=== PATIENT | male | born 1960 | race Caucasian/White ===

== ENCOUNTER 2023-12-10 03:08 | Emergency (ER) | payer OTHER ==
[~2023-12-10] VITALS: Ht 170.2 cm; Wt 70.0 kg
[~2023-12-10 03:08] MED LIST: ATEN-73 PO; HYDR25TA2 PO; LISI20TA24 PO
[2023-12-10 04:32] LABS: BASOPHILS % (AUTO) 0.6 % (0.0-2.0); EOSINOPHILS % (AUTO) 2.3 % (1.0-6.0); HEMATOCRIT 38.9 % (41-53); HEMOGLOBIN 12.9 g/dL (13.5-17.5); LYMPHOCYTES # (AUTO) 1.1 K/uL (1.0-4.8); MEAN CORPUSCULAR HEMOGLOBIN 28.9 pg (26.0-34.0); MEAN CORPUSCULAR HGB CONC 33.3 G/dL (31.0-37.0); MEAN CORPUSCULAR VOLUME 87 fL (80-100); MONOCYTES # (AUTO) 0.9 K/uL (0.1-1.0); MONOCYTES % (AUTO) 7.3 % (2.0-9.0); NEUTROPHILS # (AUTO) 9.9 K/uL (1.8-7.7); NEUTROPHILS % (AUTO) 80.8 % (40.0-70.0); PLATELET COUNT (AUTO) 288 K/uL (150-450); RED BLOOD CELL COUNT(AUTO) 4.48 MIL/uL (4.50-5.90); RED CELL DISTRIBUTION WIDTH 14.4 % (11.5-14.5); WHITE BLOOD COUNT (AUTO) 12.3 K/uL (4.5-11.0)
[2023-12-10 04:39] LABS: ANION GAP 10 mmol/L (8-16); CARBON DIOXIDE 26 mmol/L (22-29); CHLORIDE 104 mmol/L (98-107); CREATININE 0.94 mg/dL (0.60-1.30); GLOMERULAR FILTR. RATE CALC > 60 mL/min (>60); GLUCOSE,RANDOM 118 mg/dL (70-110); POTASSIUM 4.1 mmol/L (3.5-5.1); SODIUM SERUM 140 mmol/L (136-145); UREA NITROGEN, BLOOD 26 mg/dL (7-18)
[2023-12-10 04:43] VITALS: BP 150/97; PULSE 85; RESP 16; TEMP 97.9
[2023-12-10 04:45] LABS: LACTIC ACID 0.7 mmol/L (0.4-2.0)
[2023-12-10] MEDS ORDERED: CLIN-142 PO (04:47)
[2023-12-10 04:52] LABS: ALANINE AMINOTRANSFERASE 56 U/L (12-78); ALBUMIN 3.4 g/dL (3.4-5.0); ALKALINE PHOSPHATASE 87 U/L (46-116); ASPARTATE AMINOTRANSFERASE 47 U/L (15-37); BILIRUBIN,TOTAL 0.2 mg/dL (0.1-1.0); TOTAL PROTEIN, SERUM 6.6 g/dL (6.4-8.2)
[2023-12-10] MEDS: CLINDAMYCIN HCL 150 MG CAPSULE PO ONE (04:54)
[2023-12-10] MEDS: TraMADol HCL 50 MG TABLET PO ONE (04:54)
[2023-12-11] MEDS ORDERED: CLIN300C58 PO (13:59)
[2023-12-11] MEDS ORDERED: DOXY-354 PO (13:59)
[2023-12-11] MEDS ORDERED: TRAM-559 PO (13:59)
== END 2023-12-10 05:49 | disposition home or self-care (01) ==
LOC: EMS 03:09
DX: L03.116 Cellulitis of left lower limb (principal); I10 Essential (primary) hypertension; Z98.890 Other specified postprocedural states; Z88.8 Allergy status to other drugs, medicaments and biological substances
CPT/HCPCS: 80053; 83605; 85025; 93005; 99284

== ENCOUNTER 2023-12-11 09:44 | Emergency (ER) | payer OTHER ==
[~2023-12-11] VITALS: Ht 172.7 cm; Wt 80.0 kg
[~2023-12-11 09:44] MED LIST changes: +CLIN-142 PO
[2023-12-11 10:17] VITALS: TEMP 97.9
[2023-12-11] MEDS: DOXYCYCLINE HYCLATE 100 MG TABLET PO ONE (12:12)
[2023-12-11] MEDS: TraMADol HCL 50 MG TABLET PO ONE (12:12)
[2023-12-11] MEDS: CLINDAMYCIN HCL 150 MG CAPSULE PO ONE (12:12)
[2023-12-11] MEDS ORDERED: DOXY-354 PO (13:59)
[2023-12-11] MEDS ORDERED: TRAM-559 PO (13:59)
[2023-12-11] MEDS ORDERED: CLIN300C58 PO (13:59)
[2023-12-11 14:32] VITALS: BP 141/84; PULSE 84; RESP 16
== END 2023-12-11 14:55 | disposition home or self-care (01) ==
LOC: EMS 09:44
DX: L03.116 Cellulitis of left lower limb (principal); B86 Scabies; I10 Essential (primary) hypertension; Z98.890 Other specified postprocedural states; Z88.8 Allergy status to other drugs, medicaments and biological substances
CPT/HCPCS: 99284; Z7502; Z7610

== ENCOUNTER 2023-12-15 23:16 | Emergency (ER) | payer OTHER ==
[~2023-12-15] VITALS: Ht 170.2 cm; Wt 61.4 kg
[~2023-12-15 23:16] MED LIST changes: -ATEN-73 PO; -CLIN-142 PO; +CLIN300C58 PO; +DOXY-354 PO; -HYDR25TA2 PO; +TRAM-559 PO
[2023-12-16 01:16] VITALS: BP 148/99; PULSE 89; RESP 16; TEMP 98.3
[2023-12-16] MEDS: KETOROLAC TROMETHAMINE 60 MG/2 ML VIAL IM ONE (01:38)
[2023-12-16] MEDS: OxyCODONE HCL/ACETAMINOPHEN 5-325 MG TABLET PO ONE (01:38)
== END 2023-12-16 03:09 | disposition home or self-care (01) ==
LOC: EMS 23:17
DX: S80.12XA Contusion of left lower leg, initial encounter (principal); S80.11XA Contusion of right lower leg, initial encounter; I10 Essential (primary) hypertension; Z98.890 Other specified postprocedural states; Z88.8 Allergy status to other drugs, medicaments and biological substances; W18.39XA Other fall on same level, initial encounter; Y93.89 Activity, other specified; Y92.89 Other specified places as the place of occurrence of the external cause; Y99.8 Other external cause status
CPT/HCPCS: 99283; 96372; J1885

== ENCOUNTER 2023-12-19 14:15 | Emergency (ER) | payer OTHER ==
[~2023-12-19] VITALS: Ht 175.3 cm; Wt 80.0 kg
[2023-12-19 14:24] VITALS: TEMP 98.5
[2023-12-19] MEDS: DOXYCYCLINE HYCLATE 100 MG TABLET PO ONE (15:20)
[2023-12-19] MEDS: ACETAMINOPHEN 500 MG TABLET PO ONE (15:20)
[2023-12-19] MEDS: PERMETHRIN 5% 60 GM CREAM TP ONE (15:26)
[2023-12-19] MEDS ORDERED: DOXY-354 PO (15:54)
[2023-12-19] MEDS ORDERED: ACET-3385 PO (15:54)
[2023-12-19 16:09] VITALS: BP 145/84; PULSE 79; RESP 16
== END 2023-12-19 16:10 | disposition home or self-care (01) ==
LOC: EMS 14:23
DX: L03.116 Cellulitis of left lower limb (principal); B86 Scabies; I10 Essential (primary) hypertension; I63.9 Cerebral infarction, unspecified; Z88.1 Allergy status to other antibiotic agents
CPT/HCPCS: 99284; Z7502; Z7610

== ENCOUNTER 2023-12-21 20:00 | Emergency (ER) | payer OTHER ==
[~2023-12-21] VITALS: Ht 167.6 cm; Wt 61.4 kg
[~2023-12-21 20:00] MED LIST changes: +ACET-3385 PO
[2023-12-21 20:05] VITALS: TEMP 99.1
[2023-12-21] MEDS ORDERED: LISI-893 PO (23:09)
[2023-12-21] MEDS: LISINOPRIL 10 MG TABLET PO ONE (23:17)
[2023-12-21] MEDS: TraMADol HCL 50 MG TABLET PO ONE (23:17)
[2023-12-21] MEDS: CLINDAMYCIN PHOS 150 MG/ML 4 ML VIAL IM ONE (23:19)
[2023-12-21 23:49] VITALS: BP 151/74; PULSE 88; RESP 18
== END 2023-12-22 00:26 | disposition home or self-care (01) ==
LOC: EMS 20:00
DX: L03.116 Cellulitis of left lower limb (principal); I10 Essential (primary) hypertension; Z98.890 Other specified postprocedural states; Z88.8 Allergy status to other drugs, medicaments and biological substances
CPT/HCPCS: 99283; 96372; J3490

== ENCOUNTER 2023-12-26 15:52 | Emergency (ER) | payer OTHER ==
[~2023-12-26] VITALS: Ht 167.6 cm; Wt 65.9 kg
[~2023-12-26 15:52] MED LIST changes: +LISI-893 PO
[2023-12-26 15:56] VITALS: TEMP 98.1
[2023-12-26] MEDS ORDERED: ATOR40TA71 PO (16:08)
[2023-12-26] MEDS ORDERED: PANT40TA54 PO (16:08)
[2023-12-26] MEDS ORDERED: DOCU100C33 PO (16:08)
[2023-12-26] MEDS ORDERED: AMLO5TAB66 PO (16:08)
[2023-12-26] MEDS ORDERED: ESCI5TAB16 PO (16:08)
[2023-12-26] MEDS ORDERED: GABA-529 PO (16:08)
[2023-12-26 17:08] VITALS: BP 124/95; PULSE 71; RESP 16
[2023-12-26] MEDS: HYDROGEN PEROXIDE 118 ML SOLUTION TP ONE (18:05)
== END 2023-12-26 18:51 | disposition home or self-care (01) ==
LOC: EMS 15:53
DX: H61.21 Impacted cerumen, right ear (principal); I10 Essential (primary) hypertension; Z86.73 Personal history of transient ischemic attack (TIA), and cerebral infarction without residual deficits
CPT/HCPCS: 99282; Z7502; Z7610

== ENCOUNTER 2024-01-14 14:29 | Emergency (ER) | payer OTHER ==
[~2024-01-14] VITALS: Ht 170.2 cm; Wt 70.5 kg
[~2024-01-14 14:29] MED LIST changes: +AMLO5TAB66 PO; +ATOR40TA71 PO; -CLIN300C58 PO; +DOCU100C33 PO; +ESCI5TAB16 PO; +GABA-529 PO; -LISI20TA24 PO; +PANT40TA54 PO
[2024-01-14 14:34] VITALS: BP 158/98; PULSE 98; RESP 18; TEMP 98.4
[2024-01-14] MEDS: PERMETHRIN 5% 60 GM CREAM TP ONE (17:08)
[2024-01-14] MEDS ORDERED: SILD25 PO (17:40)
== END 2024-01-14 17:48 | disposition home or self-care (01) ==
LOC: EMS 14:36
DX: B86 Scabies (principal); I10 Essential (primary) hypertension; Z98.890 Other specified postprocedural states; Z88.8 Allergy status to other drugs, medicaments and biological substances
CPT/HCPCS: 99282; Z7502; Z7610

== ENCOUNTER 2024-02-14 14:46 | Emergency (ER) | payer OTHER ==
[~2024-02-14] VITALS: Ht 167.6 cm; Wt 63.6 kg
[~2024-02-14 14:46] MED LIST changes: +SILD25 PO; -TRAM-559 PO; +TRAM50TA5 PO
[2024-02-14 15:01] VITALS: TEMP 97.5
[2024-02-14] MEDS: DiphenhydrAMINE HCL 25 MG CAPSULE PO ONE (15:55)
[2024-02-14] MEDS: PERMETHRIN 5% 60 GM CREAM TP ONE (15:55)
[2024-02-14 15:58] VITALS: BP 136/89; PULSE 93; RESP 18
== END 2024-02-14 16:13 | disposition home or self-care (01) ==
LOC: EMS 14:46
DX: B86 Scabies (principal); I10 Essential (primary) hypertension; F17.210 Nicotine dependence, cigarettes, uncomplicated; Z98.890 Other specified postprocedural states; Z88.8 Allergy status to other drugs, medicaments and biological substances
CPT/HCPCS: 99283

== ENCOUNTER 2024-03-06 20:44 | Emergency (ER) | payer OTHER ==
[~2024-03-06] VITALS: Ht 167.6 cm; Wt 63.6 kg
[2024-03-06 21:03] VITALS: BP 173/118; PULSE 93; RESP 16; TEMP 97.9
[2024-03-06] MEDS ORDERED: HYDR30CR39 TP (21:24)
[2024-03-06] MEDS ORDERED: BACI28.410 TP (21:24)
[2024-03-06] MEDS ORDERED: DIPH50CA37 PO (21:24)
== END 2024-03-06 23:01 | disposition home or self-care (01) ==
LOC: EMS 20:47
DX: M17.0 Bilateral primary osteoarthritis of knee (principal); L30.9 Dermatitis, unspecified; I10 Essential (primary) hypertension; F17.210 Nicotine dependence, cigarettes, uncomplicated; Z98.890 Other specified postprocedural states
CPT/HCPCS: 99282; Z7502

== ENCOUNTER 2024-03-09 12:00 | Emergency (ER) | payer OTHER ==
[~2024-03-09] VITALS: Ht 162.6 cm; Wt 65.0 kg
[~2024-03-09 12:00] MED LIST changes: +BACI28.410 TP; +DIPH50CA37 PO; +HYDR30CR39 TP
[2024-03-09 12:07] VITALS: BP 152/101; PULSE 99; RESP 16; TEMP 98.3
== END 2024-03-09 15:35 | disposition left against medical advice (07) ==
LOC: EMS 12:02
DX: B86 Scabies (principal); Z53.21 Procedure and treatment not carried out due to patient leaving prior to being seen by health care provider

== ENCOUNTER 2024-03-09 16:32 | Emergency (ER) | payer OTHER ==
[~2024-03-09] VITALS: Ht 157.5 cm; Wt 63.6 kg
[2024-03-09 16:34] VITALS: BP 148/100; PULSE 88; RESP 18; TEMP 96.6
== END 2024-03-09 21:37 | disposition left against medical advice (07) ==
LOC: EMS 16:32
DX: B86 Scabies (principal); Z53.21 Procedure and treatment not carried out due to patient leaving prior to being seen by health care provider

== ENCOUNTER 2024-03-18 15:30 | Emergency (ER) | payer OTHER ==
[~2024-03-18] VITALS: Ht 167.6 cm; Wt 63.6 kg
[2024-03-18 15:37] VITALS: BP 134/90; PULSE 110; RESP 16; TEMP 98.3
[2024-03-18] MEDS ORDERED: BACI28.410 TP (16:48)
[2024-03-18] MEDS ORDERED: IBUP-1554 PO (16:48)
== END 2024-03-18 17:16 | disposition home or self-care (01) ==
LOC: EMS 16:07
DX: L28.0 Lichen simplex chronicus (principal); I10 Essential (primary) hypertension; F17.210 Nicotine dependence, cigarettes, uncomplicated; Z98.890 Other specified postprocedural states; Z88.8 Allergy status to other drugs, medicaments and biological substances
CPT/HCPCS: 99282; Z7502

== ENCOUNTER 2024-04-06 18:28 | Emergency (ER) | payer OTHER ==
[~2024-04-06] VITALS: Ht 167.6 cm; Wt 63.6 kg
[~2024-04-06 18:28] MED LIST changes: +IBUP-1554 PO
[2024-04-06 18:47] VITALS: TEMP 97.8
[2024-04-06] MEDS ORDERED: DOXY-354 PO (21:40)
[2024-04-06] MEDS ORDERED: TRI115O TP (21:40)
[2024-04-06 21:45] VITALS: BP 152/87; PULSE 80; RESP 16
[2024-04-06] MEDS: DOXYCYCLINE HYCLATE 100 MG TABLET PO ONE (21:49)
== END 2024-04-06 21:56 | disposition home or self-care (01) ==
LOC: EMS 18:29
DX: L03.114 Cellulitis of left upper limb (principal); L03.113 Cellulitis of right upper limb; I10 Essential (primary) hypertension; F17.210 Nicotine dependence, cigarettes, uncomplicated; Z86.73 Personal history of transient ischemic attack (TIA), and cerebral infarction without residual deficits; Z88.1 Allergy status to other antibiotic agents
CPT/HCPCS: 99283

== ENCOUNTER 2024-04-19 16:01 | Emergency (ER) | payer OTHER ==
[~2024-04-19] VITALS: Ht 167.6 cm; Wt 65.9 kg
[~2024-04-19 16:01] MED LIST changes: +TRI115O TP
[2024-04-19 16:31] VITALS: TEMP 97
[2024-04-19 16:42] LABS: BASOPHILS % (AUTO) 0.7 % (0.0-2.0); EOSINOPHILS % (AUTO) 2.6 % (1.0-6.0); HEMOGLOBIN 14.5 g/dL (13.5-17.5); LYMPHOCYTES # (AUTO) 1.6 K/uL (1.0-4.8); LYMPHOCYTES % (AUTO) 19.2 % (22.0-44.0); MEAN CORPUSCULAR HEMOGLOBIN 29.4 pg (26.0-34.0); MEAN CORPUSCULAR HGB CONC 33.6 G/dL (31.0-37.0); MEAN CORPUSCULAR VOLUME 88 fL (80-100); MONOCYTES # (AUTO) 0.6 K/uL (0.1-1.0); MONOCYTES % (AUTO) 6.8 % (2.0-9.0); NEUTROPHILS # (AUTO) 5.8 K/uL (1.8-7.7); NEUTROPHILS % (AUTO) 70.7 % (40.0-70.0); PLATELET COUNT (AUTO) 285 K/uL (150-450); RED BLOOD CELL COUNT(AUTO) 4.91 MIL/uL (4.50-5.90); RED CELL DISTRIBUTION WIDTH 13.6 % (11.5-14.5); WHITE BLOOD COUNT (AUTO) 8.2 K/uL (4.5-11.0)
[2024-04-19 16:48] LABS: ANION GAP 9 mmol/L (8-16); CALCIUM, TOTAL 9.6 mg/dL (8.8-10.5); CARBON DIOXIDE 28 mmol/L (22-29); CHLORIDE 103 mmol/L (98-107); CREATININE 0.92 mg/dL (0.60-1.30); GLOMERULAR FILTR. RATE CALC > 60 mL/min (>60); GLUCOSE,RANDOM 95 mg/dL (70-110); POTASSIUM 4.1 mmol/L (3.5-5.1); SODIUM SERUM 140 mmol/L (136-145); UREA NITROGEN, BLOOD 17 mg/dL (7-18)
[2024-04-19 16:56] LABS: B-TYPE NATRIURETIC PEPTIDE 1 pg/mL (0-100)
[2024-04-19 16:58] LABS: TROPONIN I-HIGH SENSITIVITY 6 ng/L (<76)
[2024-04-19 17:12] LABS: CREATINE KINASE, TOTAL ONLY 218 U/L (39-308)
[2024-04-19] MEDS ORDERED: AMLO-257 PO (17:19)
[2024-04-19] MEDS ORDERED: LISI-893 PO (17:19)
[2024-04-19 17:30] VITALS: BP 141/89; PULSE 86; RESP 18
== END 2024-04-19 18:02 | disposition home or self-care (01) ==
LOC: EMS 16:02
DX: R07.9 Chest pain, unspecified (principal); R06.02 Shortness of breath; I10 Essential (primary) hypertension; Z88.6 Allergy status to analgesic agent; F17.210 Nicotine dependence, cigarettes, uncomplicated
CPT/HCPCS: 71045; 80048; 82550; 83880; 84484; 85025; 93005; 99285; 36415-L1; 36415-TC

== ENCOUNTER 2024-05-16 11:08 | Emergency (ER) | payer OTHER ==
[~2024-05-16] VITALS: Ht 167.6 cm; Wt 63.6 kg
[~2024-05-16 11:08] MED LIST changes: +AMLO-257 PO
[2024-05-16 11:39] VITALS: TEMP 98.2
[2024-05-16] MEDS: SODIUM CHLORIDE 0.9% 1,000 ML IV ONE (15:11)
[2024-05-16 15:42] LABS: BASOPHILS % (AUTO) 0.8 % (0.0-2.0); EOSINOPHILS % (AUTO) 1.3 % (1.0-6.0); HEMATOCRIT 44.9 % (41-53); HEMOGLOBIN 14.7 g/dL (13.5-17.5); LYMPHOCYTES # (AUTO) 1.3 K/uL (1.0-4.8); LYMPHOCYTES % (AUTO) 17.9 % (22.0-44.0); MEAN CORPUSCULAR HEMOGLOBIN 28.9 pg (26.0-34.0); MEAN CORPUSCULAR HGB CONC 32.8 G/dL (31.0-37.0); MEAN CORPUSCULAR VOLUME 88 fL (80-100); MONOCYTES # (AUTO) 0.9 K/uL (0.1-1.0); PLATELET COUNT (AUTO) 250 K/uL (150-450); RED BLOOD CELL COUNT(AUTO) 5.09 MIL/uL (4.50-5.90); RED CELL DISTRIBUTION WIDTH 13.8 % (11.5-14.5); WHITE BLOOD COUNT (AUTO) 7.3 K/uL (4.5-11.0)
[2024-05-16] MEDS ORDERED: BACTDSB PO (15:54)
[2024-05-16] MEDS: ONDANSETRON HCL 4 MG/2 ML VIAL IVP ONE (16:49)
[2024-05-16] MEDS: KETOROLAC TROMETHAMINE 30 MG/ML VIAL IVP ONE (16:50)
[2024-05-16 16:55] VITALS: BP 146/80; PULSE 90; RESP 18
[2024-05-16 17:36] LABS: ANION GAP 8 mmol/L (8-16); CALCIUM, TOTAL 8.9 mg/dL (8.8-10.5); CARBON DIOXIDE 26 mmol/L (22-29); CHLORIDE 106 mmol/L (98-107); CREATININE 1.02 mg/dL (0.60-1.30); GLOMERULAR FILTR. RATE CALC > 60 mL/min (>60); GLUCOSE,RANDOM 86 mg/dL (70-110); POTASSIUM 4.3 mmol/L (3.5-5.1); SODIUM SERUM 140 mmol/L (136-145); UREA NITROGEN, BLOOD 23 mg/dL (7-18)
[2024-05-16 17:37] LABS: APPEARANCE,URINE CLEAR (CLEAR); BILIRUBIN,URINE NEGATIVE (NEGATIVE); COLOR,URINE YELLOW (YELLOW); GLUCOSE, URINE (UA) NEGATIVE (NEGATIVE); LEUKOCYTE ESTERASE ,URINE NEGATIVE (NEGATIVE); NITRATE,URINE NEGATIVE (NEGATIVE); OCCULT BLOOD,URINE NEGATIVE (NEGATIVE); PROTEIN,URINE 30-70 mg/dL (NEGATIVE); SPECIFIC GRAVITIY, URINE 1.034 (1.003-1.030); UROBILINOGEN,URINE <=1.0 mg/dL (<=1.0)
[2024-05-16 17:42] LABS: ALANINE AMINOTRANSFERASE 31 U/L (12-78); ALBUMIN 3.2 g/dL (3.4-5.0); ALKALINE PHOSPHATASE 88 U/L (46-116); ASPARTATE AMINOTRANSFERASE 28 U/L (15-37); BILIRUBIN,TOTAL 0.7 mg/dL (0.1-1.0); TOTAL PROTEIN, SERUM 6.8 g/dL (6.4-8.2)
== END 2024-05-16 18:32 | disposition home or self-care (01) ==
LOC: EMS 11:08
DX: L03.114 Cellulitis of left upper limb (principal); L03.221 Cellulitis of neck; R19.7 Diarrhea, unspecified; I10 Essential (primary) hypertension; F17.210 Nicotine dependence, cigarettes, uncomplicated; Z88.1 Allergy status to other antibiotic agents
CPT/HCPCS: 99284; 96374; 96361; 96375; 80053; 81003; 85025; 36415; J1885; J2405; J7030

== ENCOUNTER 2025-02-22 14:09 | Emergency (ER) | payer OTHER ==
[~2025-02-22] VITALS: Ht 177.8 cm; Wt 68.2 kg
[~2025-02-22 14:09] MED LIST changes: -ACET-3385 PO; -AMLO-257 PO; -AMLO5TAB66 PO; -ATOR40TA71 PO; -BACI28.410 TP; +BACTDSB PO; -DIPH50CA37 PO; -DOCU100C33 PO; -DOXY-354 PO; -ESCI5TAB16 PO; -GABA-529 PO; -HYDR30CR39 TP; -IBUP-1554 PO; -LISI-893 PO; -PANT40TA54 PO; -SILD25 PO; -TRAM50TA5 PO; -TRI115O TP
[2025-02-22] MEDS: SODIUM CHLORIDE 0.9% 1,000 ML IV ONE (14:47)
[2025-02-22] MEDS: ONDANSETRON HCL 4 MG/2 ML VIAL IVP ONE ×2 (14:47→15:51)
[2025-02-22] MEDS: HydrALAZINE HCL 20 MG/ML VIAL IVP ONE (15:10)
[2025-02-22 15:15] LABS: BASOPHILS % (AUTO) 0.3 % (0.0-2.0); LYMPHOCYTES # (AUTO) 0.9 K/uL (1.0-4.8); MONOCYTES # (AUTO) 0.7 K/uL (0.1-1.0); NEUTROPHILS # (AUTO) 9.5 K/uL (1.8-7.7); WHITE BLOOD COUNT (AUTO) 11.2 K/uL (4.5-11.0)
[2025-02-22 15:20] LABS: EOSINOPHILS % (AUTO) 0.2 % (1.0-6.0); HEMATOCRIT 48.6 % (41-53); HEMOGLOBIN 15.8 g/dL (13.5-17.5); LYMPHOCYTES % (AUTO) 8.3 % (22.0-44.0); MEAN CORPUSCULAR HEMOGLOBIN 28.5 pg (26.0-34.0); MEAN CORPUSCULAR HGB CONC 32.5 G/dL (31.0-37.0); MEAN CORPUSCULAR VOLUME 88 fL (80-100); MONOCYTES % (AUTO) 6.2 % (2.0-9.0); PLATELET COUNT (AUTO) 270 K/uL (150-450); RED BLOOD CELL COUNT(AUTO) 5.55 MIL/uL (4.50-5.90); RED CELL DISTRIBUTION WIDTH 14.1 % (11.5-14.5)
[2025-02-22 15:22] LABS: ANION GAP 8 mmol/L (8-16); CALCIUM, TOTAL 9.1 mg/dL (8.8-10.5); CARBON DIOXIDE 27 mmol/L (22-29); CHLORIDE 98 mmol/L (98-107); CREATININE 0.72 mg/dL (0.60-1.30); GLOMERULAR FILTR. RATE CALC > 60 mL/min (>60); GLUCOSE,RANDOM 105 mg/dL (70-110); POTASSIUM 4.3 mmol/L (3.5-5.1); SODIUM SERUM 133 mmol/L (136-145); UREA NITROGEN, BLOOD 10 mg/dL (7-18)
[2025-02-22 15:29] LABS: ALBUMIN 3.6 g/dL (3.4-5.0); BILIRUBIN,DIRECT 0.1 mg/dL (0.00-0.20); BILIRUBIN,TOTAL 0.6 mg/dL (0.1-1.0)
[2025-02-22 15:33] LABS: LIPASE 87 U/L (16-77); TROPONIN I-HIGH SENSITIVITY 8 ng/L (<76)
[2025-02-22] MEDS: MORPHINE SULFATE 4 MG/ML SYRINGE IVP ONE (15:51)
[2025-02-22 16:11] LABS: APPEARANCE,URINE CLEAR (CLEAR); BILIRUBIN,URINE NEGATIVE (NEGATIVE); COLOR,URINE LIGHT YELLOW (YELLOW); GLUCOSE, URINE (UA) NEGATIVE (NEGATIVE); KETONES,URINE TRACE mg/dL (NEGATIVE); LEUKOCYTE ESTERASE ,URINE NEGATIVE (NEGATIVE); NITRATE,URINE NEGATIVE (NEGATIVE); OCCULT BLOOD,URINE NEGATIVE (NEGATIVE); PH,URINE 7.5 (5.0-8.0); PROTEIN,URINE 300-600,SEE CONFIRM mg/dL (NEGATIVE); SPECIFIC GRAVITIY, URINE 1.022 (1.003-1.030); UROBILINOGEN,URINE <=1.0 mg/dL (<=1.0)
[2025-02-22 16:15] LABS: SULFOSALICYLIC ACID,URINE 2+ (Negative)
[2025-02-22 16:32] LABS: BACTERIA,URINE Rare /HPF (None Seen); RBC,URINE 0-2 /HPF (0-2); SQUAMOUS EPITHELIAL CELL,UR Rare /LPF (None Seen); WBC,URINE 0-2 /HPF (0-5)
[2025-02-22] MEDS: PB/HYOSCY/ATR/SCOP/LIDO/MAALOX 55 ML BOTTLE PO ONE (19:50)
[2025-02-22] MEDS ORDERED: ATOR40TA71 PO (20:27)
[2025-02-22] MEDS ORDERED: HYDR-4069 PO (20:27)
[2025-02-22] MEDS ORDERED: ESCI5TAB16 PO (20:27)
[2025-02-22] MEDS ORDERED: LISI40TA16 PO (20:27)
[2025-02-22 20:32] LABS: TROPONIN I-HIGH SENSITIVITY 8 ng/L (<76)
[2025-02-22] MEDS: AmLODIPine BESYLATE 10 MG TABLET PO ONE (20:56)
[2025-02-22] MEDS: LISINOPRIL 10 MG TABLET PO ONE (22:09)
[2025-02-22 22:54] VITALS: BP 213/122; PULSE 57; RESP 16; TEMP 97.7; O2SAT 98
== END 2025-02-22 23:07 | disposition home or self-care (01) ==
LOC: EMS 14:11
DX: R10.9 Unspecified abdominal pain (principal); R11.2 Nausea with vomiting, unspecified; I10 Essential (primary) hypertension; F17.210 Nicotine dependence, cigarettes, uncomplicated; Z88.1 Allergy status to other antibiotic agents; Z86.73 Personal history of transient ischemic attack (TIA), and cerebral infarction without residual deficits
CPT/HCPCS: 99285; 96374; 76700; 96375; 96361; 80048; 80076; 81001; 83690; 84484; 85025; 36415; 93005; 96376; J0360; J2270; J2405; J7030; 81002

== ENCOUNTER 2025-04-26 15:08 | Inpatient (IN) | payer OTHER ==
[~2025-04-26] VITALS: Ht 167.6 cm; Wt 72.7 kg
[~2025-04-26 15:08] MED LIST changes: +ATOR40TA71 PO; +ESCI5TAB16 PO; +HYDR-4069 PO; +LISI40TA16 PO
[2025-04-26] MEDS ORDERED: 0.9% SODIUM CHLORIDE 10 ML SYRINGE IVP PRN (17:00)
[2025-04-26] MEDS: SODIUM CHLORIDE 0.9% 1,200 ML IV ONE (17:06)
[2025-04-26 17:26] LABS: BASOPHILS % (AUTO) 1.2 % (0.0-2.0); EOSINOPHILS % (AUTO) 2.1 % (1.0-6.0); HEMOGLOBIN 13.8 g/dL (13.5-17.5); LYMPHOCYTES # (AUTO) 1.5 K/uL (1.0-4.8); LYMPHOCYTES % (AUTO) 20.5 % (22.0-44.0); MEAN CORPUSCULAR HEMOGLOBIN 29.2 pg (26.0-34.0); MEAN CORPUSCULAR HGB CONC 33.7 G/dL (31.0-37.0); MEAN CORPUSCULAR VOLUME 87 fL (80-100); MONOCYTES # (AUTO) 0.7 K/uL (0.1-1.0); MONOCYTES % (AUTO) 9.1 % (2.0-9.0); NEUTROPHILS % (AUTO) 67.1 % (40.0-70.0); PLATELET COUNT (AUTO) 224 K/uL (150-450); RED BLOOD CELL COUNT(AUTO) 4.73 MIL/uL (4.50-5.90); RED CELL DISTRIBUTION WIDTH 14.4 % (11.5-14.5); WHITE BLOOD COUNT (AUTO) 7.4 K/uL (4.5-11.0)
[2025-04-26 17:28] LABS: ANION GAP 6 mmol/L (8-16); CALCIUM, TOTAL 8.8 mg/dL (8.8-10.5); CARBON DIOXIDE 28 mmol/L (22-29); CHLORIDE 106 mmol/L (98-107); CREATININE 1.09 mg/dL (0.60-1.30); GLOMERULAR FILTR. RATE CALC > 60 mL/min (>60); GLUCOSE,RANDOM 88 mg/dL (70-110); POTASSIUM 4.6 mmol/L (3.5-5.1); SODIUM SERUM 140 mmol/L (136-145); UREA NITROGEN, BLOOD 21 mg/dL (7-18)
[2025-04-26 17:32] LABS: ALANINE AMINOTRANSFERASE 33 U/L (12-78); ALBUMIN 3.2 g/dL (3.4-5.0); ALKALINE PHOSPHATASE 65 U/L (46-116); ASPARTATE AMINOTRANSFERASE 30 U/L (15-37); BILIRUBIN,TOTAL 0.2 mg/dL (0.1-1.0); PROTHROMBIN TIME 15.6 SEC (9.4-11.6); TOTAL PROTEIN, SERUM 6.3 g/dL (6.4-8.2)
[2025-04-26 17:37] LABS: TROPONIN I-HIGH SENSITIVITY 7 ng/L (<76)
[2025-04-26 17:43] LABS: LACTIC ACID 2.3 mmol/L (0.4-2.0)
[2025-04-26 17:48] LABS: B-TYPE NATRIURETIC PEPTIDE 5 pg/mL (0-100)
[2025-04-26] MEDS: VANCOMYCIN 1.5 GM/WATER(PEG) 300 ML IV ONE (18:11)
[2025-04-26] MEDS ORDERED: NALOXONE HCL 1 MG/ML 2 ML SYRINGE IVP PRN (19:15)
[2025-04-26] MEDS ORDERED: ACETAMINOPHEN 325 MG TABLET PO PRN (19:15)
[2025-04-26] MEDS ORDERED: ONDANSETRON HCL 4 MG/2 ML VIAL IVP PRN (19:15)
[2025-04-26] MEDS: *CLINICAL-LEVOFLOXACIN ORAL DOSING CLINICAL ONE (19:24)
[2025-04-26 19:39] LABS: APPEARANCE,URINE CLEAR (CLEAR); BILIRUBIN,URINE NEGATIVE (NEGATIVE); COLOR,URINE LIGHT YELLOW (YELLOW); GLUCOSE, URINE (UA) NEGATIVE (NEGATIVE); KETONES,URINE NEGATIVE (NEGATIVE); LEUKOCYTE ESTERASE ,URINE NEGATIVE (NEGATIVE); NITRATE,URINE NEGATIVE (NEGATIVE); OCCULT BLOOD,URINE NEGATIVE (NEGATIVE); PROTEIN,URINE NEGATIVE (NEGATIVE); SPECIFIC GRAVITIY, URINE 1.015 (1.003-1.030); UROBILINOGEN,URINE <=1.0 mg/dL (<=1.0)
[2025-04-26] MEDS: DOCUSATE SODIUM 100 MG CAPSULE PO SCH (21:00)
[2025-04-26] MEDS: LEVOFLOXACIN 750 MG/D5% WATER 150 ML IV ONE (21:09)
[2025-04-26] MEDS: MORPHINE SULFATE 2 MG/ML SYRINGE IVP PRN (22:58)
[2025-04-26 23:05] VITALS: BP 156/94; PULSE 79; RESP 18; TEMP 97.3; O2SAT 94
[2025-04-26] MEDS: lisinopriL 10 MG TABLET PO ONE (23:05)
[2025-04-26] MEDS: HEPARIN SODIUM,PORCINE 5,000 UNITS/ML VIAL SQ SCH (23:34)
[2025-04-27 04:00] VITALS: BP 141/92; PULSE 71; RESP 18; TEMP 97.5; O2SAT 95
[2025-04-27 07:19] LABS: BASOPHILS % (AUTO) 0.8 % (0.0-2.0); EOSINOPHILS % (AUTO) 3.1 % (1.0-6.0); HEMATOCRIT 41.6 % (41-53); HEMOGLOBIN 14.1 g/dL (13.5-17.5); LYMPHOCYTES # (AUTO) 1.1 K/uL (1.0-4.8); MEAN CORPUSCULAR HEMOGLOBIN 29.3 pg (26.0-34.0); MEAN CORPUSCULAR HGB CONC 33.9 G/dL (31.0-37.0); MEAN CORPUSCULAR VOLUME 86 fL (80-100); MONOCYTES # (AUTO) 0.6 K/uL (0.1-1.0); MONOCYTES % (AUTO) 10.4 % (2.0-9.0); NEUTROPHILS % (AUTO) 67.7 % (40.0-70.0); PLATELET COUNT (AUTO) 232 K/uL (150-450); RED BLOOD CELL COUNT(AUTO) 4.81 MIL/uL (4.50-5.90); RED CELL DISTRIBUTION WIDTH 14.5 % (11.5-14.5); WHITE BLOOD COUNT (AUTO) 5.9 K/uL (4.5-11.0)
[2025-04-27 07:38] LABS: ANION GAP 7 mmol/L (8-16); CALCIUM, TOTAL 8.4 mg/dL (8.8-10.5); CARBON DIOXIDE 25 mmol/L (22-29); CHLORIDE 109 mmol/L (98-107); CREATININE 0.86 mg/dL (0.60-1.30); GLOMERULAR FILTR. RATE CALC > 60 mL/min (>60); GLUCOSE,RANDOM 90 mg/dL (70-110); POTASSIUM 4.2 mmol/L (3.5-5.1); SODIUM SERUM 141 mmol/L (136-145); UREA NITROGEN, BLOOD 15 mg/dL (7-18)
[2025-04-27] MEDS ORDERED: VANCOMYCIN 1GM/WATER(PEG/NADA) 200 ML IV ONE (08:00)
[2025-04-27] MEDS ORDERED: VANCOMYCIN 1GM/WATER(PEG/NADA) 200 ML IV SCH (08:00)
[2025-04-27 09:24] VITALS: BP 155/91; PULSE 67; RESP 18; TEMP 97.1; O2SAT 96
[2025-04-27] MEDS: VANCOMYCIN 750 MG/WATER(PEG) 150 ML IV SCH (09:42)
[2025-04-27] MEDS: ATORVASTATIN CALCIUM 20 MG TABLET PO SCH (10:50)
[2025-04-27] MEDS: ASPIRIN 81 MG CHEWABLE TABLET PO SCH (10:50)
[2025-04-27 15:57] VITALS: BP 127/109; PULSE 72; RESP 18; TEMP 97.3; O2SAT 95
[2025-04-27 19:21] VITALS: BP 143/72; PULSE 74; RESP 19; TEMP 98.2; O2SAT 99
[2025-04-27] MEDS: LEVOFLOXACIN 750 MG/D5% WATER 150 ML IV SCH (20:52)
[2025-04-27] MEDS: lisinopriL 20 MG TABLET PO SCH (20:53)
[2025-04-27] MEDS ORDERED: SODIUM CHLORIDE 0.9% 500 ML IV ONE (21:03)
[2025-04-28 04:25] VITALS: BP 146/98; PULSE 67; RESP 18; TEMP 97.5; O2SAT 99
[2025-04-28 08:46] LABS: ANION GAP 6 mmol/L (8-16); CALCIUM, TOTAL 9.1 mg/dL (8.8-10.5); CARBON DIOXIDE 28 mmol/L (22-29); CHLORIDE 106 mmol/L (98-107); GLOMERULAR FILTR. RATE CALC > 60 mL/min (>60); GLUCOSE,RANDOM 85 mg/dL (70-110); POTASSIUM 4.7 mmol/L (3.5-5.1); SODIUM SERUM 140 mmol/L (136-145); UREA NITROGEN, BLOOD 17 mg/dL (7-18)
[2025-04-28 09:05] VITALS: BP 167/93; PULSE 63; RESP 18; TEMP 97.5; O2SAT 93
[2025-04-28] MEDS ORDERED: LISI-894 PO (09:33)
[2025-04-28] MEDS ORDERED: CLIN300C58 PO (09:33)
[2025-04-28] MEDS ORDERED: ASPI-1450 PO (09:34)
[2025-04-28] MEDS ORDERED: ATOR20TA PO (09:34)
[2025-04-28] MEDS: AmLODIPine BESYLATE 5 MG TABLET PO SCH (09:54)
== END 2025-04-28 11:47 | disposition home or self-care (01) | DRG 383 ==
LOC: EMS 15:08 → EDH 19:13 → 6S 22:26
PROVIDERS: ADMIT Internal Medicine; ATTEND Internal Medicine
DX: L03.116 Cellulitis of left lower limb (principal); E44.0 Moderate protein-calorie malnutrition; E87.20 Acidosis, unspecified; I10 Essential (primary) hypertension; E78.5 Hyperlipidemia, unspecified; R09.02 Hypoxemia; L03.115 Cellulitis of right lower limb; Z86.73 Personal history of transient ischemic attack (TIA), and cerebral infarction without residual deficits; Z87.891 Personal history of nicotine dependence; Z68.25 Body mass index [BMI] 25.0-25.9, adult
CPT/HCPCS: 71045; 80048; 80076; 80202; 81003; 83605; 83735; 83880; 84145; 84484; 85025; 85610; 87040; 93005; 93970; 99285; J1644; J1956; J2270; J7030; J7040; 36415-L1; 36415-TC

== ENCOUNTER 2025-08-14 19:19 | Emergency (ER) | payer MEDICARE, OTHER ==
[~2025-08-14] VITALS: Ht 165.1 cm; Wt 75.0 kg
[~2025-08-14 19:19] MED LIST changes: +ASPI-1450 PO; +ATOR20TA PO; -ATOR40TA71 PO; -BACTDSB PO; +CLIN300C58 PO; -ESCI5TAB16 PO; -HYDR-4069 PO; +LISI-894 PO; -LISI40TA16 PO
[2025-08-14 19:27] VITALS: TEMP 98.1
[2025-08-14 19:56] LABS: PLATELET COUNT (AUTO) 302 K/uL (150-450); RED BLOOD CELL COUNT(AUTO) 4.55 MIL/uL (4.50-5.90); RED CELL DISTRIBUTION WIDTH 13.8 % (11.5-14.5); WHITE BLOOD COUNT (AUTO) 8.2 K/uL (4.5-11.0)
[2025-08-14 21:00] LABS: CALCIUM, TOTAL 8.8 mg/dL (8.8-10.5); CREATININE 1.02 mg/dL (0.60-1.30); GLOMERULAR FILTR. RATE CALC > 60 mL/min (>60); GLUCOSE,RANDOM 96 mg/dL (70-110); SODIUM SERUM 142 mmol/L (136-145); UREA NITROGEN, BLOOD 17 mg/dL (7-18)
[2025-08-15] MEDS: HYDROCODONE/ACETAMINOPHEN 5-325 MG TABLET PO ONE (00:15)
[2025-08-15 03:30] VITALS: BP 172/101; PULSE 66; RESP 18; O2SAT 97
[2025-08-15] MEDS: KETOROLAC TROMETHAMINE 30 MG/ML VIAL IM ONE (06:04)
[2025-08-15] MEDS: LOPERAMIDE HCL 2 MG CAPSULE PO ONE (06:04)
== END 2025-08-15 06:16 | disposition home or self-care (01) ==
LOC: EMS 19:22
DX: I87.2 Venous insufficiency (chronic) (peripheral) (principal); I10 Essential (primary) hypertension; F17.210 Nicotine dependence, cigarettes, uncomplicated; Z98.890 Other specified postprocedural states; Z79.899 Other long term (current) drug therapy; Z79.82 Long term (current) use of aspirin; Z86.73 Personal history of transient ischemic attack (TIA), and cerebral infarction without residual deficits; Z88.1 Allergy status to other antibiotic agents
CPT/HCPCS: 99285; 80048; 83880; 85025; 36415; 93971; 96372; J1885